=== PATIENT | male | born 1955 | race Caucasian/White ===

== ENCOUNTER 2023-11-16 10:44 | Emergency (ER) | payer MEDICARE, BC ==
[2023-11-16 10:56] VITALS: BP 154/82; PULSE 76
[2023-11-16] MEDS: Lidocaine 1% 5 ML VIAL INJECT ONE (11:25)
== END 2023-11-16 12:52 | disposition home or self-care (01) ==
LOC: JP.ED 10:44
DX: S61.442A Puncture wound with foreign body of left hand, initial encounter (principal); Z79.899 Other long term (current) drug therapy; W26.8XXA Contact with other sharp object(s), not elsewhere classified, initial encounter
CPT/HCPCS: 73120-26-LT; 73120-LT; 99283